=== PATIENT | female | born 1990 | race Caucasian/White ===

== ENCOUNTER 2021-11-28 23:03 | Outpatient (CLI) | payer OTHER | END 2021-11-28 23:04 | disposition critical access hospital (66) | LOC: EMS 23:03 | DX: M25.521 Pain in right elbow (principal); W01.0XXA Fall on same level from slipping, tripping and stumbling without subsequent striking against object, initial encounter; Y93.01 Activity, walking, marching and hiking; Y92.003 Bedroom of unspecified non-institutional (private) residence as the place of occurrence of the external cause | CPT/HCPCS: A0425; A0427 ==

== ENCOUNTER 2021-11-28 23:38 | Emergency (ER) | payer OTHER ==
--- NOTE | 2021-11-28 23:45 | ED Physician Documentation ---
PD HPI UPPER EXT INJURY - Stated complaint Stated Complaint: DISLOCATED ELBOW - Chief complaint Chief Complaint: Trauma Ext - History obtained from History obtained from: Patient - History of Present Illness Location: Right, Elbow Type of injury: Fall Where injury occurred: A house / apartment Timing - onset: Enter time (22:15), Today Timing - details: Abrupt onset Pain level now: 8 Improved by: Rest Worsened by: Moving, Palpating Associated symptoms: Swelling. No: Weakness, Numbness, Tingling, Discolored Similar symptoms before: Has not had sx before Recently seen: Not recently seen - Additonal information Additional information: BIBA. C/o sudden onset right elbow pain 10:15 PM tonight when she lost her balance while walking at an air bnb (visiting from [place]). She has severely decreased ROM right elbow due to the pain. She thinks the elbow is dislocated. Review of Systems Musculoskeletal: reports: Joint pain (right elbow). denies: Neck pain, Back pain, Extremity pain, Extremity swelling, Joint swelling, Pain with weight bearing Neurologic: denies: Focal weakness, Numbness, Head injury PD PAST MEDICAL HISTORY - Past Medical History Past Medical History: Yes Other Past Medical History: CMT - Allergies Allergies/Adverse Reactions: Allergies Allergy/AdvReac Type Severity Reaction Status Date / Time No Known Drug Allergies Allergy Verified 11/28/21 23:37 PD ED PE NORMAL - Vitals Vital signs reviewed: Yes - General General: Alert and oriented X 3, No acute distress, Well developed/nourished - HEENT HEENT: Atraumatic - Neck Neck: No bony TTP - Cardiac Cardiac: RRR, No murmur - Respiratory Respiratory: No respiratory distress, Clear bilaterally - Neuro Neuro: Alert and oriented X 3, No sensory deficit (LTS intact RUE including lateral aspect of deltoid, hand, fingers) Eye Opening: Spontaneous Motor: Obeys Commands Verbal: Oriented GCS Score: 15 PD ED PE EXPANDED - Extremities Extremities: Other (TTP right elbow , unable to ROM (held at 90 degrees flexion and adduction)) Results - Vitals Vitals: Oxygen O2 Source Room air - Rads (name of study) right elbow xrays Radiology: Prelim report reviewed, See rad report post-reduction right elbow xrays Radiology: Prelim report reviewed, See rad report Procedures - Reduction Body part reduced: Right, Elbow Fracture or dislocation: Dislocation Anesthesia: Dilaudid, Other (propofol) Elbow reduction technique: Traction counter traction Reduction aftercare: NV intact, Xray confirms reduction, Alignment improved, Sling, Patient tolerated well - Procedural sedation Sedation prep: Informed consent, Last meal (6:30 PM), PE performed, ASA 2 - mild disease, IV O2 monitor, ET CO2 monitor, RT present Sedation Medications: propofol Mallampati classification: II Patient status during sedation: Drowsy, Responds to verbal, Maintained airway, Recovered uneventfully Sedation recovery: Recovered uneventfully, Back to baseline Time in sedation (Minutes): 30 PD MEDICAL DECISION MAKING - ED course Complexity details: reviewed results, re-evaluated patient, considered differential, d/w patient ED course: right elbow dislocation after fall earlier tonight. Required 190 mg propofol to achieve adequate sedation. Recovered uneventfully. Sling placed, follow up recommendations discussed as well as return precautions. Departure - Departure Disposition: 01 Home, Self Care Clinical Impression: Elbow dislocation Condition: Good Instructions: ED Dislocated Elbow Comments: Follow up with your primary care provider within 1 week. Discharge Date/Time: 11/29/21 04:06
--- NOTE | 2021-11-29 00:59 | XRAY Report ---
PROCEDURE: Elbow 3 View RT INDICATIONS: fall, right elbow pain TECHNIQUE: 5 views of the elbow were acquired. COMPARISON: None. FINDINGS: Bones: Posterior dislocation of the elbow. The distal humerus is located anteromedially to the proxim al ulna and radius. No obvious displaced fracture is seen. Soft tissues: Soft tissue edema is seen surrounding the elbow. Probable joint effusion. IMPRESSION: Posterior dislocation of the elbow. No definite fracture identified, but correlation with postreducti on imaging is recommended. Reviewed by: Adoany Simms MD on 11/29/2021 12:58 AM [facility] Approved by: Adonay Simms MD on 11/29/2021 12:58 AM [facility] Station ID: [id number]
[2021-11-29] MEDS ORDERED: PROPOFOL 200 MG/20 ML VIAL IVP STA (01:05)
[2021-11-29] MEDS ORDERED: HYDROmorphone 1 MG/ML CARPUJECT IVP STA (01:05)
[2021-11-29] MEDS ORDERED: SODIUM CHLORIDE 0.9% 1,000 ML IV STA ×2 (01:47→02:37)
[2021-11-29] MEDS ORDERED: HYDROcod/ACET 5/325 Prepack 4 PO STA (03:04)
[2021-11-29] MEDS ORDERED: ONDANSETRON ODT 4 MG TABLET TL STA (03:29)
[2021-11-29 03:40] VITALS: BP 140/108
[2021-11-29] MEDS ORDERED: ONDANSETRON 4 MG/2 ML VIAL IVP STA (03:43)
[2021-11-29] MEDS ORDERED: ONDANSETRON ODT 4 MG Prepack 2 TL STA (03:44)
--- NOTE | 2021-11-29 07:44 | XRAY Report ---
PROCEDURE: Elbow 2 View RT INDICATIONS: right elbow post-reduction TECHNIQUE: 3 views of the elbow were acquired. COMPARISON: Right elbow radiographs 11/28/2021. FINDINGS: Bones: Interval reduction of the elbow joint. No fractures identified. No dislocations. No suspicio us bony lesions. Soft tissues: Small elbow joint effusion. No suspicious soft tissue calcifications. IMPRESSION: Interval reduction of the elbow joint. Small joint effusion. This report is concordant with the overnight preliminary interpretation. Reviewed by: Kike Ortega MD on 11/29/2021 6:[address] [facility] Approved by: Kike Ortega MD on 11/29/2021 6:[address] [facility] Station ID: [id number]
== END 2021-11-29 04:06 | disposition home or self-care (01) ==
LOC: ED 23:38
DX: S53.104A Unspecified dislocation of right ulnohumeral joint, initial encounter (principal); W18.39XA Other fall on same level, initial encounter; Y93.01 Activity, walking, marching and hiking; Y92.89 Other specified places as the place of occurrence of the external cause
CPT/HCPCS: 24605; 73070; 73080; 96374; 99152; 99153; 99282; 99284; J1170; Q0162; 94770